=== PATIENT | female | born 1935 | race Caucasian/White ===

== ENCOUNTER → 2017-04-26 | Outpatient (CLI) | payer OTHER, BC ==
[~2017-04-26] MED LIST: A-CILLIN500 MG PO; BIOTIN1000 MCG PO; CITRACAL + D 311 TAB PO; CO Q-1030 M1 PO; DYA PO; FIO3 PO; FULL CIRCLE BIOT5 MG PO; GLUCOSAMINE SUL1 CA4; LUTEIN20 MG PO; METOPROLOL50 MG PO; POTASSIUM GLUCONATE PO; PRI20 PO; SERTRALINE50 MG PO; SUMATRIPTAN SU100 MG PO; TOP50 PO; VIC; Z-BEC1 TAB PO; ZES5 PO; ZYR5 PO; [UNRECOGNIZED DRUG - OTHER]; [UNRECOGNIZED DRUG - OTHER] PO
== END | disposition home or self-care (01) ==
LOC: RD 14:16
DX: M54.2 Cervicalgia (principal)